=== PATIENT | male | born 1975 | race Caucasian/White ===

== ENCOUNTER 2017-06-30 11:16 | Day surgery (SDC) | payer OTHER ==
[2017-06-29 10:57] VITALS: BMI 39.5
[2017-06-30] MEDS ORDERED: MIDAZOLAM HCL 2 MG/2 ML SINGLE DOSE VIAL ONE (15:37)
[2017-06-30] MEDS ORDERED: PROPOFOL 20 ML ONE (15:37)
[2017-06-30] MEDS ORDERED: BUPIVACAINE HCL 0.25% 125 MG/50 ML VIAL ONE (15:40)
[2017-06-30] MEDS ORDERED: ceFAZolin SODIUM 1 GM VIAL ONE (16:04)
[2017-06-30] MEDS ORDERED: ONDANSETRON 4 MG/2 ML VIAL ONE ×2 (16:24→16:57)
[2017-06-30] MEDS ORDERED: DEXAMETHASONE SOD PHOSPHATE 4 MG/1 ML VIAL ONE (16:24)
[2017-06-30] MEDS ORDERED: oxyCODONE HCL 5 MG TABLET PO PRN (16:43)
[2017-06-30] MEDS ORDERED: ONDANSETRON 4 MG/2 ML VIAL IVPUSH PRN (16:43)
--- NOTE | 2017-06-30 16:43 | OP ---
Operative Note - Note: Operative Date: 06/30/17 Pre-Operative Diagnosis: right knee medial meniscal tear Operation: right knee arthroscopy with partial medial meniscectomy Post-Operative Diagnosis: Same as Pre-op Surgeon: Peng Macedo Anesthesia: General Estimated Blood Loss (mls): 10 Operative Report Dictated: Yes
[2017-06-30] MEDS ORDERED: LACTATED RINGERS SOLUTION 1,000 ML IV SCH (16:45)
--- NOTE | 2017-06-30 17:11 | OP ---
DATE OF OPERATION: 06/30/2017 PREOPERATIVE DIAGNOSIS: Right knee medial meniscal tear. POSTOPERATIVE DIAGNOSIS: Right knee medial meniscal tear. PROCEDURE: Right knee arthroscopy with partial medial meniscectomy. SURGEON: Peng Vilchis MD ANESTHESIA: General. POSTOPERATIVE CONDITION: Stable. COMPLICATIONS: None. INDICATIONS: This is a pleasant, 42-year-old gentleman who had been injured at work. He was suffering with medial knee pain and was found to have a medial meniscal tear on MRI. Initially, conservative management was trialed. However, he failed to improve. Operative risks were reviewed in detail including bleeding, infection, neurovascular injury, need for further surgeries, postoperative pain and stiffness, progression of osteoarthritis. We discussed medical risks such as heart attack, stroke, DVT, PE, and . I addressed all the patient's questions and concerns. He voiced understanding and elected to proceed. DESCRIPTION OF PROCEDURE: Patient was brought to the operating room where general anesthesia was administered. The right lower extremity was prepped and draped in the usual sterile fashion. A preoperative dose of antibiotics was given, and the usual timeout procedure was performed. The right lower extremity was examined, demonstrating full range of motion and mild effusion. At this point, the portal sites were marked out. They were injected subcutaneously with 0.25% Marcaine. The lateral portal was established using an 11 blade. The arthroscope was passed into the passed into the knee. Examination of the patellofemoral joint demonstrated some superficial fraying of the articular cartilage. Passing the arthroscope down into the notch demonstrated intact ACL. Passing the arthroscope into the medial compartment, a medial portal was established under spinal needle localization. The medial compartment was now examined. There was high-grade fissuring and fraying of the medial femoral condyle. There was some superficial fraying of the tibial surface. There was a complex tear of the posterior horn and body of the medial meniscus. There was a large flap which was folded under the meniscus at the junction of the posterior horn and body. Utilizing a meniscus biter as well as a shaver, this was debrided down to a stable base. The lateral compartment was now inspected. The meniscus showed no lesions. There was some very superficial fraying of the articular surfaces. The excess fluid was now withdrawn from the joint. The portals were sutured using 4-0 nylon. Sterile dressings were placed. The patient was extubated, transferred to recovery room in stable condition. PENG VILCHIS M.D. [id number]
[2017-06-30 18:00] VITALS: TEMP 97.4
[2017-06-30 18:44] VITALS: BP 138/72; PULSE 81
== END 2017-06-30 18:52 | disposition home or self-care (01) ==
LOC: FASU 11:16
PROVIDERS: ATTEND Orthopaedic Surgery Sports Medicine
PROC: 0SBC4ZZ Excision of Right Knee Joint, Percutaneous Endoscopic Approach (ICD-10-PCS; principal; 2017-06-30 16:14)
DX: S83.241A Other tear of medial meniscus, current injury, right knee, initial encounter (principal); X58.XXXA Exposure to other specified factors, initial encounter; Y93.9 Activity, unspecified; Y92.9 Unspecified place or not applicable
CPT/HCPCS: 94760

== ENCOUNTER 2020-07-17 09:33 | Day surgery (SDC) | payer OTHER ==
[2020-07-15 09:05] VITALS: BMI 37.9
[2020-07-17] MEDS ORDERED: BUPIVACAINE HCL 50 ML ONE (10:20)
[2020-07-17] MEDS ORDERED: MIDAZOLAM HCL 2 MG/2 ML SINGLE DOSE VIAL ONE (10:52)
[2020-07-17] MEDS ORDERED: PROPOFOL 20 ML ONE ×2 (11:03)
[2020-07-17] MEDS ORDERED: SUCCINYLCHOLINE CHLORIDE 200 MG/10 ML SYRINGE ONE (11:03)
[2020-07-17] MEDS ORDERED: ceFAZolin SODIUM 1 GM VIAL ONE ×2 (11:12→11:14)
[2020-07-17] MEDS ORDERED: KETOROLAC TROMETHAMINE 30 MG/1 ML VIAL ONE (11:28)
[2020-07-17] MEDS ORDERED: DEXAMETHASONE SOD PHOSPHATE 4 MG/1 ML VIAL ONE (11:28)
[2020-07-17] MEDS ORDERED: ONDANSETRON 4 MG/2 ML VIAL ONE (11:28)
[2020-07-17] MEDS ORDERED: ACETAMINOPHEN 1000 MG/100 ML VIAL (NON FORMULARY) IVPB ONE ×2 (12:15→12:50)
[2020-07-17] MEDS ORDERED: ACETAMINOPHEN INJECTION 100 ML IVPB ONE (12:15)
[2020-07-17] MEDS ORDERED: ONDANSETRON 4 MG/2 ML VIAL IVPUSH PRN (12:49)
[2020-07-17] MEDS ORDERED: oxyCODONE HCL 5 MG TABLET PO PRN (12:49)
[2020-07-17] MEDS ORDERED: oxyCODONE HCL 5 MG TABLET ONE (12:58)
[2020-07-17] MEDS ORDERED: LACTATED RINGERS SOLUTION 1,000 ML IV SCH (13:00)
[2020-07-17 13:12] VITALS: TEMP 98.5
[2020-07-17 14:29] VITALS: BP 116/73; PULSE 72
== END 2020-07-17 14:00 | disposition home or self-care (01) ==
LOC: FASU 09:33
PROVIDERS: ATTEND Orthopaedic Surgery Sports Medicine
PROC: 0SBD4ZZ Excision of Left Knee Joint, Percutaneous Endoscopic Approach (ICD-10-PCS; 2020-07-17)
PROC: 0SBD4ZZ Excision of Left Knee Joint, Percutaneous Endoscopic Approach (ICD-10-PCS; principal; 2020-07-17 11:20)
DX: S83.242A Other tear of medial meniscus, current injury, left knee, initial encounter (principal); S83.282A Other tear of lateral meniscus, current injury, left knee, initial encounter; X58.XXXA Exposure to other specified factors, initial encounter; Y92.9 Unspecified place or not applicable; Y93.9 Activity, unspecified
CPT/HCPCS: 94760; J0131